=== PATIENT | male | born 1965 | race Caucasian/White ===

== ENCOUNTER → 2016-07-11 | Outpatient (CLI) | payer OTHER ==
[2016-03-09 14:38] VITALS: BP 150/97
[~2016-07-11] MED LIST: CYCL10TA2 PO; HYDR-971 PO; METH4TAB2 PO; NAPR500T8 PO
--- NOTE | 2016-07-11 16:06 | KCIC ---
PROCEDURE MRI study of the left shoulder without contrast HISTORY The patient fell in March 2016. The patient has had left shoulder pain and limited range of motion since. TECHNIQUE Noncontrast MRI sequences of the left shoulder were performed in all 3 planes. COMPARISON None available. FINDINGS There is a complete tear of the lateral aspect of the supraspinatus tendon. The AP dimension of the defect is 26 millimeters and the transverse dimension of the defect is 16 millimeters. There is retraction of the tendon medially. Subscapularis tendon and transverse ligament are intact. The tendon of the long head of biceps is intact. 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 There is spurring of the inferior edge of the acromial process. A type 3 acromial process is seen. These findings may impinge the acromial humeral space. There are mild chronic cystic changes of the posterior lateral aspect of the humeral head secondary to chronic impingement. No other marrow infiltrative process is seen. No fracture or bone contusion is evident. There is a small glenohumeral joint effusion. No loose osteochondral body is evident. There is attenuation of the anterior superior aspect of the glenoid labrum with a thickened middle glenohumeral ligament. This may be seen normally i.e. Idris complex. Otherwise no labral tear is seen. No paralabral ganglion cyst or spinoglenoid notch ganglion cyst is seen. IMPRESSION Large complete rotator cuff tear. Electronically signed by: Lowell Robledo MD (Jul 11, 2016 16:04:07)
== END | disposition home or self-care (01) ==
LOC: KCIC MRI 14:45
PROVIDERS: ATTEND Orthopaedic Surgery Sports Medicine
DX: M75.122 Complete rotator cuff tear or rupture of left shoulder, not specified as traumatic (principal)
CPT/HCPCS: 73221

== ENCOUNTER 2016-11-14 06:11 | Day surgery (SDC) | payer OTHER ==
[~2016-11-14] VITALS: Ht 162.6 cm; Wt 92.1 kg
[~2016-11-14 06:11] MED LIST changes: +CLINDAMYCIN 900MG PREMIX 50 ML IV PRN; +FLUT1DIS3 IH; +NAPR375T3 PO; +PROAIR RESPICL90 MCG IH
[2016-11-14] MEDS ORDERED: LIDOCAINE 1% PF 30 ML VIAL. ONE (06:28)
[2016-11-14] MEDS ORDERED: BUPIVACAINE MPF 0.5% 30 ML VIAL. ONE (06:28)
[2016-11-14] MEDS ORDERED: EPINEPHrine VIAL 30 MG/30 ML VIAL ONE (06:29)
[2016-11-14] MEDS ORDERED: MORPHINE SULFATE 2 MG/ML DISP.SYRIN. IV PRN (07:00)
[2016-11-14] MEDS ORDERED: fentaNYL PF VIAL 100 MCG/2 ML VIAL IV PRN ×2 (07:00)
[2016-11-14] MEDS ORDERED: BUPIVACAINE 0.5% 50 ML VIAL. ONE (07:00)
[2016-11-14] MEDS ORDERED: MIDAZOLAM HCL/PF 2 MG/2 ML VIAL. ONE ×2 (07:00→07:06)
[2016-11-14] MEDS ORDERED: PROCHLORPERAZINE 10 MG/2 ML VIAL. IV PRN (07:00)
[2016-11-14] MEDS ORDERED: EPINEPHrine 1 MG/ML VIAL ONE (07:00)
[2016-11-14] MEDS ORDERED: HYDROmorphone 2 MG/ML VIAL IV PRN (07:00)
[2016-11-14] MEDS ORDERED: IV RINGERS,LACTATED 1000ML 1,000 ML IV SCH (07:00)
[2016-11-14] MEDS ORDERED: LIDOCAINE 1% 1 ML SYRINGE. ID PRN (07:00)
[2016-11-14] MEDS ORDERED: ONDANSETRON PF 4 MG/2 ML VIAL. IV PRN (07:00)
--- NOTE | 2016-11-14 07:00 | DISCH ---
DISCHARGE INSTRUCTIONS Condition on Discharge Condition on Discharge: Stable Activity After Discharge Activity Instructions for Disc: Other, see below Other activity instructions: arm to remain in sling Bathing Instructions: Shower-keep dressing dry Weight Bearing Status after Di: Non weight bearing Diet after Discharge Diet after Discharge: Regular Wound Incision Care Wound/Incision Care: Ice to area for comfort, Keep wound/cast CDI, Change dressing Contacting the DRAmy after DC Call your doctor for: Concerns you may have Follow-Up Follow up with: Chioma in 2wks PATRICE MEDINA II, MD Nov 14, 2016 07:00
--- NOTE | 2016-11-14 07:02 | PDOC ---
BRIEF OPERATIVE NOTE Date: Nov 14, 2016 Pre-Op Diagnosis L RTC tear Post-Op Diagnosis same Procedure Performed L shoulder scope, partial RTC repair Surgeon Chioma Data Processing Equipment Repairer Yoselin Anesthesiologist Sameera Anesthesia Type: General, Local, Regional Blood Loss 10mL Complications none PATRICE MEDINA II, MD Nov 14, 2016 07:02
[2016-11-14] MEDS ORDERED: ONDANSETRON PF 4 MG/2 ML VIAL. ONE (07:06)
[2016-11-14] MEDS ORDERED: PROPOFOL 20 ML IV ONE (07:06)
[2016-11-14] MEDS ORDERED: DEXAMETHASONE SOD PHOS 20 MG/5 ML VIAL. ONE (07:06)
[2016-11-14] MEDS ORDERED: LIDOCAINE 2% PF Vial for OR 5 ML VIAL. ONE (07:06)
[2016-11-14] MEDS ORDERED: fentaNYL PF VIAL 100 MCG/2 ML VIAL ONE (07:06)
[2016-11-14] MEDS ORDERED: ROCURONIUM 100 MG/10 ML VIAL. ONE (07:07)
[2016-11-14] MEDS ORDERED: PHENYLEPHRINE in 0.9% NACL PF 1 MG/10 ML DISP.SYRIN. IV ONE (07:55)
[2016-11-14] MEDS ORDERED: GLYCOPYRROLATE 1 MG/5 ML VIAL. ONE (08:43)
[2016-11-14] MEDS ORDERED: NEOSTIGMINE 10 MG/10 ML VIAL. ONE (08:43)
[2016-11-14] MEDS ORDERED: OXYC-323 PO (09:18)
[2016-11-14] MEDS ORDERED: DOCU-109 PO (09:19)
[2016-11-14] MEDS ORDERED: ONDA4TAB10 SL (09:19)
[2016-11-14] MEDS ORDERED: oxyCODONE/APAP 5/325 1 TAB TABLET ONE (09:41)
[2016-11-14] MEDS ORDERED: oxyCODONE/APAP 5/325 1 TAB TABLET PO ONE (09:45)
[2016-11-14 09:55] VITALS: BP 121/76
--- NOTE | 2016-11-14 13:54 | OP ---
DATE OF SURGERY: 11/14/2016 SURGEON: Russell Medina MD. ABSORPTION AND ADSORPTION ENGINEER: Josephine Wyatt. ANESTHESIA: General plus regional nerve block. PREOPERATIVE DIAGNOSIS: Left shoulder rotator cuff tear. POSTOPERATIVE DIAGNOSIS: Left shoulder rotator cuff tear. PROCEDURE PERFORMED: Arthroscopic left shoulder partial rotator cuff repair. FINDINGS: The patient had a large retracted 2 tendon tear with a fairly large stump of tendon, a little over a centimeter, still attached to his footprint. No loose bodies. His biceps was intact without pathology. Grade 1 changes at his glenoid. Otherwise, articular cartilage without pathology. Subscapularis was intact. COMPONENTS INSERTED: [employer] HEALICOIL suture anchor. REASON FOR PROCEDURE: The patient is a very pleasant 51-year-old male who had a fall in 02/2016 and had persistent shoulder pain and dysfunction that began acutely after this fall. I had seen and evaluated him after a couple of months of physical therapy, conservative treatments, and MRI and clinical examination were consistent with above findings, and we had a discussion of risks, benefits, alternatives to proceeding with the above surgery and he elected to proceed. Based on his preoperative MRI, with the large amount of retraction, I did discuss that he would still likely benefit from a partial repair. I had encouraged him to perform the surgery sooner; however, he was wanting to delay surgery until the fall for personal reasons. DESCRIPTION OF PROCEDURE: The patient was greeted in the preoperative area by myself. Correct extremity was marked and verified. He was taken back to the operative suite and antibiotics were started en route. While in the preoperative area, he had undergone a regional nerve block by the anesthesiology team. Once in the OR, he was transferred gently supine to the OR table and underwent successful induction of general anesthetic. After this, we set him up in a beach chair position, maintained the C-spine in a neutral position and had a large pad under his legs. He was secured to the bed. Left upper extremity was then prepped and draped in the usual sterile fashion. We conducted a standard preoperative timeout. I then palpated, marked surface anatomy and used a spinal needle to localize the posterosuperior portal, and incised skin in accordance with this. I then introduced my blunt arthroscopic trocar, followed by the camera into the glenohumeral joint. I then used a spinal needle to localize an anterosuperior portal and incised skin in accordance with this and then introduced my probe and conducted my diagnostic arthroscopy with the above noted findings. I inspected his tear. I created a lateral portal with spinal needle localization again and used a cuff grasper to inspect the mobility of his tear. His supraspinatus was quite retracted and scarred in place. I used a cautery device to try to mobilize as much of his rotator cuff as I was able, as well as I removed bursal tissue for appropriate visualization. After removing bursal tissue, I used my cup grasper again to check the mobility of his tendon and his infraspinatus was more mobile as was his supraspinatus, but I was only able to get the supraspinatus to about the humeral head, medial most margin. Therefore, I elected to just perform a partial repair. I debrided the edges of the tendon and used an awl to create a hole for my HEALICOIL anchor which I then inserted. He had a really good purchase. I then used a suture passing device and spectrum to shuttle the sutures through in a simple configuration for a tendon and tendon type repair. This repair had good integrity on gentle range of motion of his arm. I attempted to try to repair more, but due to undue tension on the rotator cuff, I was not able to oppose any more tissue. Therefore, I removed all of the excess arthroscopic fluid with my shaver and withdrew the arthroscopic instrumentation. His portals were then closed with simple interrupted 2-0 nylon. He tolerated surgery well. No complications. At the conclusion of surgery, he was awakened from anesthesia, transferred gently supine to a recovery room cart and taken to PACU in stable and extubated condition. Postop plan is for him to be nonweightbearing for 6 weeks. His arm will remain in a sling. He will start physical therapy after seeing me in clinic. RUSSELL MEDINA MD DR: ADALBERTO/kori JOB#: [id number] / [id number] [place]
== END 2016-11-14 10:40 | disposition home or self-care (01) ==
LOC: SURG 06:11
PROVIDERS: ATTEND Orthopaedic Surgery Sports Medicine
DX: S46.012A Strain of muscle(s) and tendon(s) of the rotator cuff of left shoulder, initial encounter (principal); X58.XXXA Exposure to other specified factors, initial encounter; Y93.89 Activity, other specified; Y92.89 Other specified places as the place of occurrence of the external cause; Y99.8 Other external cause status; E78.00 Pure hypercholesterolemia, unspecified; J44.9 Chronic obstructive pulmonary disease, unspecified; E11.9 Type 2 diabetes mellitus without complications; E66.9 Obesity, unspecified; Z68.43 Body mass index [BMI] 50.0-59.9, adult; Z88.0 Allergy status to penicillin; Z91.018 Allergy to other foods; Z87.39 Personal history of other diseases of the musculoskeletal system and connective tissue; Z72.89 Other problems related to lifestyle; Z87.891 Personal history of nicotine dependence; Z87.01 Personal history of pneumonia (recurrent)
CPT/HCPCS: 29827; C1713; C1782; J0171; J1100; J2250; J2370; J2405; J2704; J2710; J3010; J3490; J7120; J2001